=== PATIENT | female | born 1950 | race Caucasian/White ===

== ENCOUNTER 2018-09-05 14:23 | Outpatient (CLI) | payer BC ==
--- NOTE | 2018-09-05 14:55 | RAD ---
RADIOGRAPH CHEST 2 VIEW: DATE: 09/05/2018 HISTORY: 68-year-old female with bronchitis and cough FINDINGS: The images are overexposed. There is no pleural effusion, cardiomegaly, or gross evidence of consolid ation. IMPRESSION: 1) Limited study. 2) no acute findings.
== END 2018-09-05 14:24 | disposition home or self-care (01) ==
LOC: BURRAD 14:23
PROVIDERS: ATTEND Family Medicine
DX: J40 Bronchitis, not specified as acute or chronic (principal)
CPT/HCPCS: 71046